=== PATIENT | female | born 1940 | race Caucasian/White ===

== ENCOUNTER 2018-01-12 09:21 | Inpatient (IN) | payer OTHER ==
[~2018-01-12] VITALS: Ht 149.9 cm; Wt 53.5 kg
[2018-01-12 09:40] VITALS: BP 145/80
[2018-01-12] MEDS ORDERED: KETOROLAC 30 MG/ML VIAL IVP ONE (10:55)
[2018-01-12] MEDS ORDERED: NACL 0.9% 500 ML IV ONE ×2 (10:55)
[2018-01-12] MEDS ORDERED: ONDANSETRON 4 MG/2 ML VIAL IVP ONE (10:55)
[2018-01-12 11:12] LABS: BASOPHILS # (AUTO) 0.1 K/uL (0.00-0.22); BASOPHILS % (AUTO) 0.6 % (0.0-2.0); EOSINOPHILS % (AUTO) 0.3 % (0.0-4.0); HEMATOCRIT 32.2 % (36-48); HEMOGLOBIN 10.3 g/dL (12.0-16.0); LYMPHOCYTES # (AUTO) 0.8 K/uL (2.5-16.5); LYMPHOCYTES % (AUTO) 8.4 % (20.5-51.1); MEAN CORPUSCULAR HEMOGLOBIN 20 pg (27-31); MEAN CORPUSCULAR HGB CONC 32 g/dL (33-37); MONOCYTES # (AUTO) 0.5 K/uL (0.8-1.0); MONOCYTES % (AUTO) 4.9 % (1.7-9.3); NEUTROPHILS # (AUTO) 8.1 K/uL (1.8-7.7); NEUTROPHILS % (AUTO) 85.8 % (42.2-75.2); PLATELET COUNT (AUTO) 340 K/uL (140-450); RED BLOOD CELL COUNT(AUTO) 5.11 MIL/uL (4.20-5.40); RED CELL DISTRIBUTION WIDTH 19.5 % (11.6-13.7); WHITE BLOOD COUNT (AUTO) 9.4 K/uL (4.8-10.8)
[2018-01-12 11:36] LABS: ANION GAP 11.8 (8-16); CARBON DIOXIDE 23.5 mmol/L (21-32); CHLORIDE 96 mmol/L (98-107); CREATININE 0.8 mg/dL (0.6-1.3); GLUCOSE 121 mg/dL (74-106); POTASSIUM 4.3 mmol/L (3.5-5.1); SODIUM SERUM 127 mmol/L (136-145); UREA NITROGEN, BLOOD 16 mg/dL (7-18)
[2018-01-12 11:38] LABS: PROTHROMBIN TIME 11.4 secs (10.8-13.4)
[2018-01-12 11:42] LABS: ALBUMIN 2.8 g/dL (3.4-5.0); ASPARTATE AMINOTRANSFERASE 135 U/L (15-37); TOTAL BILIRUBIN 0.6 mg/dL (0.0-1.0)
[2018-01-12] MEDS ORDERED: NACL 0.9% 1,500 ML IV ONE (12:05)
[2018-01-12 12:52] LABS: APPEARANCE,URINE CLEAR (CLEAR); BILIRUBIN,URINE NEGATIVE (NEGATIVE); BLOOD, URINE NEGATIVE (NEGATIVE); COLOR,URINE YELLOW (YELLOW); NITRITE, URINE NEGATIVE (NEGATIVE); UGLUCOSE NEGATIVE (NEGATIVE)
[2018-01-12 13:11] LABS: LEUKOCYTE ESTERASE ,URINE TRACE (NEGATIVE); RBC,URINE 0-5 (RARE) /HPF (0-5)
[2018-01-12 14:00] VITALS: BP 142/68
[2018-01-12] MEDS ORDERED: ZOLPIDEM 5 MG TAB PO PRN (14:05)
[2018-01-12] MEDS ORDERED: ONDANSETRON 4 MG/2 ML VIAL IM/IVP PRN (14:05)
[2018-01-12] MEDS ORDERED: LORazepam 2 MG/ML VIAL IM/IVP PRN (14:05)
[2018-01-12] MEDS ORDERED: DOCUSATE SODIUM 100 MG GELCAP PO PRN (14:05)
[2018-01-12] MEDS ORDERED: HYDROcodone/APAP 5/325 MG 1 TAB TAB PO PRN (14:05)
[2018-01-12] MEDS ORDERED: ACETAMINOPHEN 325 MG TAB PO PRN (14:05)
[2018-01-12] MEDS ORDERED: MORPHINE SULFATE 2 MG/ML SYR IVP PRN (14:05)
[2018-01-12] MEDS: NACL 0.9% 1,000 ML IV SCH (14:50)
[2018-01-12 15:37] LABS: CHOL/HDL RATIO 4.2 (1-4.5); MAGNESIUM 1.7 mg/dL (1.8-2.4); PHOSPHORUS 3.3 mg/dL (2.5-4.9); THYROID STIMULATING HORMONE 0.1 uIU/mL (0.34-3.74)
[2018-01-12] MEDS ORDERED: DEXTROSE 50% 50 ML SYR IVP PRN (15:45)
[2018-01-12 16:00] VITALS: BP 113/59
[2018-01-12] MEDS ORDERED: METOCLOPRAMIDE 10 MG/2 ML INJ VIAL IVP PRN (16:10)
[2018-01-12] MEDS ORDERED: SIMETHICONE 80 MG TAB.CHEW PO PRN (16:10)
[2018-01-12] MEDS ORDERED: INFLUENZA VIRUS VACCINE QUAD 0.5 ML SYR IMVAC PRN (16:30)
[2018-01-12] MEDS ORDERED: DICLOFENAC 25 MG TABEC PO PRN (16:30)
[2018-01-12] MEDS ORDERED: PNEUMOCOCCAL VACCINE 23 MCG/0.5 ML VIAL IMVAC SCH (16:30)
[2018-01-12] MEDS: BLOOD GLUCOSE MONITORING 1 DEV DEV FS SCH ×2 (16:51→20:00)
[2018-01-12] MEDS ORDERED: VAS10 PO (16:51)
[2018-01-12] MEDS ORDERED: METF850T PO (16:51)
[2018-01-12] MEDS ORDERED: VOL25 PO (16:51)
[2018-01-12] MEDS ORDERED: MAGNESIUM OXIDE 400 MG TAB PO SCH (18:00)
[2018-01-12 20:00] VITALS: BP 154/63
[2018-01-12 20:45] VITALS: BP 160/75
[2018-01-12] MEDS: amLODIPine 5 MG TAB PO SCH (21:31)
[2018-01-13] VITALS: BP 157/77
[2018-01-13] MEDS: NACL 0.9% 1,000 ML IV SCH ×2 (02:48→13:17)
[2018-01-13] MEDS: NAPROXEN 500 MG TAB PO PRN (03:34)
[2018-01-13 04:00] VITALS: BP 151/63
[2018-01-13] MEDS: BLOOD GLUCOSE MONITORING 1 DEV DEV FS SCH ×4 (06:22→20:29)
[2018-01-13 08:00] VITALS: BP 141/72
[2018-01-13 08:16] LABS: BASOPHILS % (AUTO) 0.5 % (0.0-2.0); EOSINOPHILS % (AUTO) 0.6 % (0.0-4.0); HEMATOCRIT 28.3 % (36-48); HEMOGLOBIN 8.9 g/dL (12.0-16.0); LYMPHOCYTES # (AUTO) 1.1 K/uL (2.5-16.5); LYMPHOCYTES % (AUTO) 12.6 % (20.5-51.1); MEAN CORPUSCULAR HEMOGLOBIN 20 pg (27-31); MEAN CORPUSCULAR HGB CONC 32 g/dL (33-37); MEAN CORPUSCULAR VOLUME 63.9 fL (80-94); MONOCYTES # (AUTO) 0.6 K/uL (0.8-1.0); MONOCYTES % (AUTO) 6.8 % (1.7-9.3); NEUTROPHILS # (AUTO) 6.7 K/uL (1.8-7.7); NEUTROPHILS % (AUTO) 79.5 % (42.2-75.2); PLATELET COUNT (AUTO) 297 K/uL (140-450); RED BLOOD CELL COUNT(AUTO) 4.42 MIL/uL (4.20-5.40); RED CELL DISTRIBUTION WIDTH 19.4 % (11.6-13.7); WHITE BLOOD COUNT (AUTO) 8.4 K/uL (4.8-10.8)
[2018-01-13] MEDS: ENALAPRIL 10 MG TAB PO SCH (08:20)
[2018-01-13] MEDS: metFORMIN 850 MG TAB PO SCH (08:21)
[2018-01-13] MEDS: LACTOBACILLUS RHAMNOSUS GG 1 EACH CAP PO SCH (08:21)
[2018-01-13] MEDS ORDERED: amLODIPine 5 MG TAB PO SCH (09:00)
[2018-01-13 09:19] LABS: ANION GAP 6.7 (8-16); CARBON DIOXIDE 23.3 mmol/L (21-32); CHLORIDE 105 mmol/L (98-107); CREATININE 0.6 mg/dL (0.6-1.3); GLUCOSE 117 mg/dL (74-106); SODIUM SERUM 131 mmol/L (136-145); UREA NITROGEN, BLOOD 10 mg/dL (7-18)
[2018-01-13 12:00] VITALS: BP 156/48
[2018-01-13] MEDS ORDERED: MAGNESIUM CITRATE 300 ML BTL PO PRN (12:15)
[2018-01-13 12:35] LABS: FOLIC ACID > 20.00 ng/mL (>3.0)
[2018-01-13 12:58] LABS: FERRITIN 495 ng/mL (15-150); TRANSFERRIN 124 mg/dL (200-370)
[2018-01-13 16:00] VITALS: BP 151/77
[2018-01-13] MEDS ORDERED: BOWEL EVACUANT DRINK 4,000 ML PDS PO ONE (16:10)
[2018-01-13] MEDS ORDERED: BOWEL EVACUANT DRINK 4,000 ML PDS PO SCH (16:30)
[2018-01-13] MEDS ORDERED: MAGNESIUM CITRATE 300 ML BTL PO SCH (16:30)
[2018-01-13] MEDS: amLODIPine 5 MG TAB PO SCH (17:52)
[2018-01-13] MEDS: SENNA 8.6 MG TAB PO SCH (17:52)
[2018-01-13] MEDS: LACTULOSE 20 GM/30 ML UDC PO SCH ×2 (17:53→20:27)
[2018-01-13] MEDS: INSULIN LISPRO SLIDING SCALE 100 UNITS/ML VIAL SUBQ PRN (17:57)
[2018-01-13 20:00] VITALS: BP 136/65
[2018-01-13] MEDS: METOCLOPRAMIDE 10 MG/2 ML INJ VIAL IVP SCH (20:27)
[2018-01-13] MEDS ORDERED: HYDRAGUARD CREAM TP PRN (21:20)
[2018-01-14] VITALS (14 sets, daily range): BP systolic 111–165; BP diastolic 50–81
[2018-01-14] MEDS: NACL 0.9% 1,000 ML IV SCH (00:24)
[2018-01-14] MEDS: METOCLOPRAMIDE 10 MG/2 ML INJ VIAL IVP SCH (05:27)
[2018-01-14] MEDS: BLOOD GLUCOSE MONITORING 1 DEV DEV FS SCH ×4 (06:07→20:11)
[2018-01-14 06:51] LABS: BASOPHILS # (AUTO) 0.1 K/uL (0.00-0.22); BASOPHILS % (AUTO) 0.6 % (0.0-2.0); EOSINOPHILS # (AUTO) 0.1 K/uL (0-0.4); EOSINOPHILS % (AUTO) 0.7 % (0.0-4.0); HEMATOCRIT 29.6 % (36-48); HEMOGLOBIN 9.4 g/dL (12.0-16.0); LYMPHOCYTES % (AUTO) 9.4 % (20.5-51.1); MEAN CORPUSCULAR HEMOGLOBIN 20 pg (27-31); MEAN CORPUSCULAR HGB CONC 32 g/dL (33-37); MEAN CORPUSCULAR VOLUME 63.5 fL (80-94); MONOCYTES # (AUTO) 0.8 K/uL (0.8-1.0); MONOCYTES % (AUTO) 7.4 % (1.7-9.3); NEUTROPHILS # (AUTO) 8.9 K/uL (1.8-7.7); NEUTROPHILS % (AUTO) 81.9 % (42.2-75.2); PLATELET COUNT (AUTO) 320 K/uL (140-450); RED BLOOD CELL COUNT(AUTO) 4.66 MIL/uL (4.20-5.40); RED CELL DISTRIBUTION WIDTH 19.2 % (11.6-13.7); WHITE BLOOD COUNT (AUTO) 10.9 K/uL (4.8-10.8)
[2018-01-14 07:42] LABS: ANION GAP 13.9 (8-16); CHLORIDE 100 mmol/L (98-107); CREATININE 0.6 mg/dL (0.6-1.3); GLUCOSE 134 mg/dL (74-106); POTASSIUM 3.9 mmol/L (3.5-5.1); SODIUM SERUM 133 mmol/L (136-145); UREA NITROGEN, BLOOD 13 mg/dL (7-18)
[2018-01-14 07:44] LABS: MAGNESIUM 1.9 mg/dL (1.8-2.4); PHOSPHORUS 2.1 mg/dL (2.5-4.9)
[2018-01-14] MEDS ORDERED: ACETAMINOPHEN 160 MG/5 ML UDC PO PRN (08:00)
[2018-01-14] MEDS: SENNA 8.6 MG TAB PO SCH (08:31)
[2018-01-14] MEDS: NAPROXEN 500 MG TAB PO PRN (08:32)
[2018-01-14] MEDS: ENALAPRIL 10 MG TAB PO SCH (08:32)
[2018-01-14] MEDS: LACTULOSE 20 GM/30 ML UDC PO SCH (08:32)
[2018-01-14] MEDS: LACTOBACILLUS RHAMNOSUS GG 1 EACH CAP PO SCH (08:32)
[2018-01-14] MEDS: metFORMIN 850 MG TAB PO SCH (08:33)
[2018-01-14] MEDS ORDERED: fentaNYL 0.05 MG/ML VIAL ONE (12:02)
[2018-01-14] MEDS ORDERED: MIDAZOLAM 2 MG/2 ML VIAL ONE (12:02)
[2018-01-14] MEDS ORDERED: diphenhydrAMINE 50 MG/ML VIAL ONE (12:02)
[2018-01-14] MEDS: FERROUS SULFATE 325 MG TABEC PO SCH (16:58)
[2018-01-14] MEDS: amLODIPine 5 MG TAB PO SCH (16:58)
[2018-01-14] MEDS: INSULIN LISPRO SLIDING SCALE 100 UNITS/ML VIAL SUBQ PRN ×2 (17:35→20:43)
[2018-01-14] MEDS: PANTOPRAZOLE 40 MG TABEC PO SCH (20:15)
[2018-01-14] MEDS: hydrALAZINE 20 MG/ML VIAL IVP PRN (23:34)
[2018-01-15] MEDS: hydrALAZINE 20 MG/ML VIAL IVP PRN (00:44)
[2018-01-15 04:12] VITALS: BP 124/50
[2018-01-15] MEDS: BLOOD GLUCOSE MONITORING 1 DEV DEV FS SCH ×2 (05:52→12:17)
[2018-01-15 08:00] VITALS: BP 116/73
[2018-01-15] MEDS ORDERED: SODIUM PHOS / POTASSIUM PHOS 1 PKT PDR PO SCH (08:30)
[2018-01-15] MEDS: ENALAPRIL 10 MG TAB PO SCH (08:36)
[2018-01-15] MEDS: metFORMIN 850 MG TAB PO SCH (08:37)
[2018-01-15] MEDS: LACTOBACILLUS RHAMNOSUS GG 1 EACH CAP PO SCH (09:22)
[2018-01-15] MEDS: PANTOPRAZOLE 40 MG TABEC PO SCH (09:22)
[2018-01-15] MEDS: FERROUS SULFATE 325 MG TABEC PO SCH (09:22)
[2018-01-15] MEDS ORDERED: ONDA8ODT2 PO (09:45)
[2018-01-15] MEDS ORDERED: PANT40EC28 PO (09:45)
[2018-01-15] MEDS ORDERED: AMLO5TAB4 PO (09:45)
[2018-01-15] MEDS ORDERED: VAS10 PO (09:45)
[2018-01-15] MEDS ORDERED: ACET-9525 PO (09:45)
[2018-01-15 10:48] LABS: BASOPHILS % (AUTO) 0.3 % (0.0-2.0); EOSINOPHILS % (AUTO) 0.4 % (0.0-4.0); HEMATOCRIT 29.4 % (36-48); HEMOGLOBIN 9.1 g/dL (12.0-16.0); LYMPHOCYTES # (AUTO) 0.9 K/uL (2.5-16.5); LYMPHOCYTES % (AUTO) 7.9 % (20.5-51.1); MEAN CORPUSCULAR HEMOGLOBIN 20 pg (27-31); MEAN CORPUSCULAR HGB CONC 31 g/dL (33-37); MEAN CORPUSCULAR VOLUME 63.3 fL (80-94); MONOCYTES # (AUTO) 0.6 K/uL (0.8-1.0); MONOCYTES % (AUTO) 5.5 % (1.7-9.3); NEUTROPHILS % (AUTO) 85.9 % (42.2-75.2); PLATELET COUNT (AUTO) 314 K/uL (140-450); RED BLOOD CELL COUNT(AUTO) 4.65 MIL/uL (4.20-5.40); RED CELL DISTRIBUTION WIDTH 19.4 % (11.6-13.7); WHITE BLOOD COUNT (AUTO) 11.6 K/uL (4.8-10.8)
[2018-01-15 11:19] LABS: ANION GAP 10.5 (8-16); CARBON DIOXIDE 24.2 mmol/L (21-32); CHLORIDE 101 mmol/L (98-107); CREATININE 0.6 mg/dL (0.6-1.3); GLUCOSE 149 mg/dL (74-106); POTASSIUM 3.7 mmol/L (3.5-5.1); SODIUM SERUM 132 mmol/L (136-145); UREA NITROGEN, BLOOD 13 mg/dL (7-18)
[2018-01-15 12:00] VITALS: BP 145/55
[2018-01-15] MEDS: INSULIN LISPRO SLIDING SCALE 100 UNITS/ML VIAL SUBQ PRN (12:38)
[2018-01-15] MEDS ORDERED: DIPHENOXYLATE /ATROPINE 2.5 MG TAB PO SCH (15:00)
== END 2018-01-15 15:15 | disposition home or self-care (01) | DRG 391 ==
LOC: MED 09:21 → MTU 13:24
PROVIDERS: ADMIT General Practice; ATTEND General Practice
PROC: 0FB23ZX Excision of Left Lobe Liver, Percutaneous Approach, Diagnostic (ICD-10-PCS; 2018-01-13)
PROC: 0DJD8ZZ Inspection of Lower Intestinal Tract, Via Natural or Artificial Opening Endoscopic (ICD-10-PCS; 2018-01-14)
PROC: 0DB68ZX Excision of Stomach, Via Natural or Artificial Opening Endoscopic, Diagnostic (ICD-10-PCS; principal; 2018-01-14 12:15)
PROC: 0DB98ZX Excision of Duodenum, Via Natural or Artificial Opening Endoscopic, Diagnostic (ICD-10-PCS; 2018-01-14 12:15)
PROC: 3E0234Z Introduction of Serum, Toxoid and Vaccine into Muscle, Percutaneous Approach (ICD-10-PCS; 2018-01-15)
PROC: 3E02340 Introduction of Influenza Vaccine into Muscle, Percutaneous Approach (ICD-10-PCS; 2018-01-15)
DX: K29.00 Acute gastritis without bleeding (principal); E43 Unspecified severe protein-calorie malnutrition; K22.10 Ulcer of esophagus without bleeding; E87.1 Hypo-osmolality and hyponatremia; N39.0 Urinary tract infection, site not specified; C78.7 Secondary malignant neoplasm of liver and intrahepatic bile duct; D68.59 Other primary thrombophilia; K92.9 Disease of digestive system, unspecified; K29.60 Other gastritis without bleeding; E87.6 Hypokalemia; I10 Essential (primary) hypertension; M19.90 Unspecified osteoarthritis, unspecified site; E11.65 Type 2 diabetes mellitus with hyperglycemia; D50.9 Iron deficiency anemia, unspecified; K59.00 Constipation, unspecified; K57.90 Diverticulosis of intestine, part unspecified, without perforation or abscess without bleeding; K64.8 Other hemorrhoids; E11.69 Type 2 diabetes mellitus with other specified complication; D63.8 Anemia in other chronic diseases classified elsewhere; K31.7 Polyp of stomach and duodenum; K42.9 Umbilical hernia without obstruction or gangrene; Z79.1 Long term (current) use of non-steroidal anti-inflammatories (NSAID); Z79.84 Long term (current) use of oral hypoglycemic drugs; Z83.3 Family history of diabetes mellitus; Z82.49 Family history of ischemic heart disease and other diseases of the circulatory system; Z87.891 Personal history of nicotine dependence; Z23 Encounter for immunization
CPT/HCPCS: 36415; 47000; 70450; 71045; 76705; 80048; 80053; 81001; 82140; 82150; 82607; 82728; 82746; 82948; 83036; 83540; 83605; 83690; 83735; 83880; 84100; 84134; 84443; 84484; 85025; 85045; 85610; 85730; 86677; 87040; 87081; 87086; 90658; 90732; 93005; 96374; 96375; 99285; J0360; J0696; J1200; J1815; J1885; J2250; J2405; J2765; J3010; J7030; J7060; Q0092